=== PATIENT | male | born 1970 | race Caucasian/White ===

== ENCOUNTER 2016-05-26 13:53 | Emergency (ER) | payer SELFPAY ==
[2016-05-26 14:02] VITALS: BP 160/118
[2016-05-26] MEDS ORDERED: Ondansetron 4 MG/2 ML SDV IVPUSH ONE (14:46)
[2016-05-26] MEDS ORDERED: Sodium Chloride 0.9% 10 ML Syringe FLUSH PRN ×3 (14:46→15:35)
[2016-05-26] MEDS ORDERED: Pantoprazole 40 MG Vial IVPUSH ONE (14:46)
[2016-05-26] MEDS ORDERED: Iopamidol 612 MG/ML 150 ML Bottle IVPUSH ONE (14:51)
[2016-05-26] MEDS ORDERED: Diatrizoate Meglumine/Diatrizoate Sodium 37% 120 ML Bottle PO ONE ×2 (14:53→15:35)
--- NOTE | 2016-05-26 14:59 | EDM.PDOC ---
ED HPI GI/ABDOMINAL - General Chief Complaint: Gastrointestinal Problem Stated Complaint: GASTROINTESTINAL ISSUES Time Seen by Provider: 05/26/16 14:35 Source of Information: Reports: Patient History Limitations: Reports: Intoxication - History of Present Illness INITIAL COMMENTS - FREE TEXT/NARRATIVE: Patient is a 46-year-old male who presents to the ED complaining of left flank, left lower quadrant, suprapubic, right lower quadrant abdominal pain that started approximately 2 weeks ago. States discomfort initially started to left flank with concerns of being diverticulitis. States he had some nausea and emesis with onset of discomfort that resolved on its own accord. States as of recent he developed this pain again and has been unable to eat/drink.He has been nauseated with no emesis. He's had regular bowel movements daily with last BM this morning described as hard then soft with no blood present. Pain is currently rated a 6/10. He does note some burning sensation with urination described as minimal with no blood or abnormal discharge present. Patient states he consumed 2 beers today. Does have a history of alcoholism, anxiety, depression. Current medications include ibuprofen only. He denies any abdominal sureHe is most abdominal surgical history. He has no primary care provider. He smokes one pack a day. Smokes marijuana intermittently. Timing/Duration: Reports: Constant Location: other (Left lower, left upper, left flank) Quality: Reports: ache, stabbing, throbbing, radiating (2 left groin) Severity: moderate Improves with: Reports: other (Nothing) Worsens with: Reports: other (Nothing) Context: Denies: sick contact, bad/questionable food, out of country travel, recent surgery, recent trauma, lifting, activity/exercise Associated Symptoms: Reports: back pain, groin pain, loss of appetite, malaise, nausea/vomiting. 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 (see below) (none stated.) - Related Data Allergies/ADRs: Allergies Allergy/AdvReac Type Severity Reaction Status Date / Time amoxicillin [Amoxicillin] Allergy Rash Verified 07/29/15 01:40 Penicillins Allergy Rash Verified 07/29/15 01:40 Past Medical History - Past Health History Medical/Surgical History: Denies Medical/Surgical History Cardiovascular History: Reports: Arrhythmia, Hypertension Gastrointestinal History: Reports: Diverticulosis Psychiatric History: Reports: Addiction Social & Family History - Family History Family Medical History: Noncontributory - Tobacco Use Smoking Status *Q: Current Every Day Smoker Years of Tobacco use: 30 Packs/Tins Daily: 1 Second Hand Smoke Exposure: Yes - Alcohol Use Days Per Week of Alcohol Use: 7 Number of Drinks Per Day: 6 Total Drinks Per Week: 42 - Recreational Drug Use Recreational Drug Use: Yes Drug Use in Last 12 Months: No Recreational Drug Type: Reports: Marijuana/Hashish Recreational Drug Use Frequency: Rarely Recreational Drug Last Use: 1 day ago - Living Situation & Occupation Living situation: Reports: 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 Denies: fever, chills Respiratory: Denies: shortness of breath, cough, sputum Cardiovascular: Denies: Chest pain, Dyspnea on exertion, Lightheadedness GI/Abdominal: Reports: Abdominal pain, Decreased appetite, Nausea. Denies: Constipation, Diarrhea, Vomiting : Reports: discharge, dysuria, flank pain, urinary retention. Denies: frequency, hematuria, urgency Musculoskeletal: Denies: back pain Neurological: Denies: confusion, dizziness, numbness, seizure, tingling, difficulty walking Psychiatric: Reports: Depression. Denies: Agitation, Anxiety ED EXAM, GI/ABD - Physical Exam Exam: See Below Exam Limited By: Intoxication General Appearance: alert, WD/WN, no apparent distress Eyes: bilateral: EOMI Ears: hearing grossly normal Nose: normal inspection Throat/Mouth: Normal inspection, Normal oropharynx, Normal voice, No airway compromise Head: atraumatic, normocephalic Neck: normal inspection, supple, non-tender, full range of motion. No: lymphadenopathy (L), lymphadenopathy (R) Respiratory/Chest: no respiratory distress, no accessory muscle use, chest non- tender, respiratory distress, rhonchi (right lower lung field) Cardiovascular: normal peripheral pulses, regular rate, rhythm GI/Abdominal: normal bowel sounds, soft, no organomegaly, no distention, tenderness (left lower quadrant, suprapubic, and right lower quadrant) (Male) Exam: Deferred Rectal (Males) Exam: Deferred Back Exam: normal inspection, full range of motion. No: CVA tenderness (L), CVA tenderness (R) Extremities: normal inspection, normal range of motion, non-tender Neurological: alert, oriented, CN II-XII intact, normal cognition, no motor/ sensory deficits Psychiatric: normal affect, normal mood Skin Exam: Warm, Dry, Intact, Normal color, No rash Course - Vital Signs Last Recorded V/S: Last Vital Signs Temp 97.5 F 05/26/16 13:58 Pulse 94 05/26/16 13:58 Resp 16 05/26/16 13:58 BP 160/118 H 05/26/16 13:58 Pulse Ox 96 05/26/16 13:58 - Orders/Labs/Meds Orders: Active Orders 24 hr Category Date Time Status Peripheral IV Care [RC] . DIRECTED Care 05/26/16 14:46 Active Sodium Chloride 0.9% [Normal Saline] 1,000 ml Med 05/26/16 15:00 Active IV ASDIRECTED Sodium Chloride 0.9% [Saline Flush] Med 05/26/16 14:46 Active 10 ml FLUSH ASDIRECTED PRN Sodium Chloride 0.9% [Saline Flush] Med 05/26/16 14:51 Active 10 ml FLUSH ONETIME PRN Sodium Chloride 0.9% [Saline Flush] Med 05/26/16 15:35 Active 10 ml FLUSH ONETIME PRN Peripheral IV Insertion Adult [OM.PC] Stat Oth 05/26/16 14:45 Ordered Medication Orders Sodium Chloride (Normal Saline) 1,000 mls @ 999 mls/hr IV ASDIRECTED MELODY Last Admin: 05/26/16 15:11 Dose: 999 mls/hr Sodium Chloride (Saline Flush) 10 ml FLUSH ASDIRECTED PRN PRN Reason: Keep Vein Open Last Admin: 05/26/16 15:18 Dose: 10 ml Sodium Chloride (Saline Flush) 10 ml FLUSH ONETIME PRN PRN Reason: IV FLUSH Last Admin: 05/26/16 15:18 Dose: 10 ml Sodium Chloride (Saline Flush) 10 ml FLUSH ONETIME PRN PRN Reason: IV FLUSH Last Admin: 05/26/16 15:56 Dose: 10 ml Labs: Laboratory Tests 05/26/16 05/26/16 05/26/16 Range/Units 14:06 14:06 14:06 WBC 10.95 H (4.23-9.07) K/mm3 RBC 5.37 (4.63-6.08) M/mm3 Hgb 16.0 (13.7-17.5) gm/L Hct 47.5 (40.1-51.0) % MCV 88.5 (79.0-92.2) fl MCH 29.8 (25.7-32.2) pg MCHC 33.7 (32.2-35.5) g/dl RDW Std Deviation 43.2 (35.1-43.9) fL Plt Count 339 H (163-337) K/mm3 MPV 9.1 L (9.4-12.3) fl Neut % (Auto) 53.1 (34.0-67.9) % Lymph % (Auto) 33.8 (21.8-53.1) % [place] % (Auto) 9.8 (5.3-12.2) % Eos % (Auto) 2.4 (0.8-7.0) Baso % (Auto) 0.6 (0.1-1.2) % Neut # 5.82 H (1.78-5.38) K/mm3 Lymph # 3.70 H (1.32-3.57) K/mm3 [place] # 1.07 H (0.30-0.82) K/mm3 Eos # 0.26 (0.04-0.54) K/mm3 Baso # 0.07 (0.01-0.08) K/mm3 PT 10.5 (8.0-13.0) SECONDS INR 0.97 APTT (22-36) SECONDS Sodium 140 (136-145) mEq/L Potassium 3.4 L (3.5-5.1) mEq/L Chloride 103 (98-107) mEq/L Carbon Dioxide 23 (21-32) mEq/L Anion Gap 17.4 H (5-15) BUN 11 (7-18) mg/dL Creatinine 0.7 (0.7-1.3) mg/dL Est Cr Clr Drug Dosing 132.48 mL/min Estimated GFR (MDRD) > 60 (>60) mL/min BUN/Creatinine Ratio 15.7 (14-18) Glucose 111 H (74-106) mg/dL Calcium 8.8 (8.5-10.1) mg/dL Total Bilirubin 0.6 (0.2-1.0) mg/dL AST 18 (15-37) U/L ALT 21 (16-63) U/L Alkaline Phosphatase 92 (46-116) U/L C-Reactive Protein 0.2 (<1.0) mg/dL Total Protein 7.4 (6.4-8.2) g/dl Albumin 4.2 (3.4-5.0) g/dl Globulin 3.2 gm/dL Albumin/Globulin Ratio 1.3 (1-2) Lipase 158 (73-393) U/L Urine Color (Yellow) Urine Appearance (Clear) Urine pH (5.0-8.0) Ur Specific Mutual (1.005-1.030) Urine Protein (Negative) Urine Glucose (UA) (Negative) Urine Ketones (Negative) Urine Occult Blood (Negative) Urine Nitrite (Negative) Urine Bilirubin (Negative) Urine Urobilinogen (0.2-1.0) Ur Leukocyte Esterase (Negative) Urine RBC (0-5) /hpf Urine WBC (0-5) /hpf Ur Squamous Epith Cells (0-5) /hpf Urine Bacteria (FEW) /hpf Urine Mucus (FEW) /hpf Urine Opiates Screen (NEGATIVE) Ur Buprenorphine Scrn (NEGATIVE) Ur Oxycodone Screen (NEGATIVE) Urine Methadone Screen (NEGATIVE) Ur Propoxyphene Screen (NEGATIVE) Ur Barbiturates Screen (NEGATIVE) Ur Tricyclics Screen (NEGATIVE) Ur Phencyclidine Scrn (NEGATIVE) Ur Amphetamine Screen (NEGATIVE) U Methamphetamines Scrn (NEGATIVE) U Benzodiazepines Scrn (NEGATIVE) U Cocaine Metab Screen (NEGATIVE) U Marijuana (THC) Screen (NEGATIVE) Ethyl Alcohol 0.22 (0.00) gm% 05/26/16 05/26/16 05/26/16 Range/Units 14:06 14:15 14:15 WBC (4.23-9.07) K/mm3 RBC (4.63-6.08) M/mm3 Hgb (13.7-17.5) gm/L Hct (40.1-51.0) % MCV (79.0-92.2) fl MCH (25.7-32.2) pg MCHC (32.2-35.5) g/dl RDW Std Deviation (35.1-43.9) fL Plt Count (163-337) K/mm3 MPV (9.4-12.3) fl Neut % (Auto) (34.0-67.9) % Lymph % (Auto) (21.8-53.1) % [place] % (Auto) (5.3-12.2) % Eos % (Auto) (0.8-7.0) Baso % (Auto) (0.1-1.2) % Neut # (1.78-5.38) K/mm3 Lymph # (1.32-3.57) K/mm3 [place] # (0.30-0.82) K/mm3 Eos # (0.04-0.54) K/mm3 Baso # (0.01-0.08) K/mm3 PT (8.0-13.0) SECONDS INR APTT 24 (22-36) SECONDS Sodium (136-145) mEq/L Potassium (3.5-5.1) mEq/L Chloride (98-107) mEq/L Carbon Dioxide (21-32) mEq/L Anion Gap (5-15) BUN (7-18) mg/dL Creatinine (0.7-1.3) mg/dL Est Cr Clr Drug Dosing mL/min Estimated GFR (MDRD) (>60) mL/min BUN/Creatinine Ratio (14-18) Glucose (74-106) mg/dL Calcium (8.5-10.1) mg/dL Total Bilirubin (0.2-1.0) mg/dL AST (15-37) U/L ALT (16-63) U/L Alkaline Phosphatase (46-116) U/L C-Reactive Protein (<1.0) mg/dL Total Protein (6.4-8.2) g/dl Albumin (3.4-5.0) g/dl Globulin gm/dL Albumin/Globulin Ratio (1-2) Lipase (73-393) U/L Urine Color Light yellow (Yellow) Urine Appearance Clear (Clear) Urine pH 6.5 (5.0-8.0) Ur Specific Mutual 1.010 (1.005-1.030) Urine Protein Negative (Negative) Urine Glucose (UA) Negative (Negative) Urine Ketones Negative (Negative) Urine Occult Blood Negative (Negative) Urine Nitrite Negative (Negative) Urine Bilirubin Negative (Negative) Urine Urobilinogen 0.2 (0.2-1.0) Ur Leukocyte Esterase Negative (Negative) Urine RBC Not seen (0-5) /hpf Urine WBC 0-5 (0-5) /hpf Ur Squamous Epith Cells 0-5 (0-5) /hpf Urine Bacteria Not seen (FEW) /hpf Urine Mucus Not seen (FEW) /hpf Urine Opiates Screen Negative (NEGATIVE) Ur Buprenorphine Scrn Negative (NEGATIVE) Ur Oxycodone Screen Negative (NEGATIVE) Urine Methadone Screen Negative (NEGATIVE) Ur Propoxyphene Screen Negative (NEGATIVE) Ur Barbiturates Screen Negative (NEGATIVE) Ur Tricyclics Screen Negative (NEGATIVE) Ur Phencyclidine Scrn Negative (NEGATIVE) Ur Amphetamine Screen Negative (NEGATIVE) U Methamphetamines Scrn Negative (NEGATIVE) U Benzodiazepines Scrn Negative (NEGATIVE) U Cocaine Metab Screen Negative (NEGATIVE) U Marijuana (THC) Screen Presumptive positive H (NEGATIVE) Ethyl Alcohol (0.00) gm% Meds: Medications Generic Name Dose Route Start Last Admin Trade Name Freq PRN Reason Stop Dose Admin Sodium Chloride 1,000 mls @ 999 mls/hr 05/26/16 15:00 05/26/16 15:11 Normal Saline IV 999 mls/hr ASDIRECTED MELODY Administration Sodium Chloride 10 ml 05/26/16 14:46 05/26/16 15:18 Saline Flush FLUSH 10 ml ASDIRECTED PRN Administration Keep Vein Open Sodium Chloride 10 ml 05/26/16 14:51 05/26/16 15:18 Saline Flush FLUSH 10 ml ONETIME PRN Administration IV FLUSH Sodium Chloride 10 ml 05/26/16 15:35 05/26/16 15:56 Saline Flush FLUSH 10 ml ONETIME PRN Administration IV FLUSH Discontinued Medications Generic Name Dose Route Start Last Admin Trade Name Freq PRN Reason Stop Dose Admin Diatrizoate Meglum/Diatrizoate Sod 120 ml 05/26/16 14:53 05/26/16 15:55 Gastrografin 37% PO 05/26/16 14:54 90 ml ONETIME ONE Administration Diatrizoate Meglum/Diatrizoate Sod 90 ml 05/26/16 15:35 Gastrografin 37% PO 05/26/16 15:36 ONETIME ONE Hydromorphone HCl 0.5 mg 05/26/16 14:46 05/26/16 15:15 Dilaudid IM 05/26/16 14:47 Not Given ONETIME ONE Hydromorphone HCl 0.5 mg 05/26/16 15:16 05/26/16 15:16 Dilaudid IVPUSH 05/26/16 15:17 0.5 mg ONETIME ONE Administration Iopamidol 150 ml 05/26/16 14:51 Isovue-300 (61%) IVPUSH 05/26/16 14:52 ONETIME ONE Iopamidol 100 ml 05/26/16 15:35 05/26/16 15:56 Isovue-300 (61%) IVPUSH 05/26/16 15:36 100 ml ONETIME ONE Administration Ondansetron HCl 4 mg 05/26/16 14:46 05/26/16 15:12 Zofran IVPUSH 05/26/16 14:47 4 mg ONETIME ONE Administration Pantoprazole Sodium 40 mg 05/26/16 14:46 05/26/16 15:11 Protonix Iv IVPUSH 05/26/16 14:47 40 mg ONETIME ONE Administration - Re-Assessments/Exams Free Text/Narrative Re-Assessment/Exam: Will order peripheral IV with normal saline 999 mls per hour, Zofran 4 mg IVP, Protonix 40 mg IVP, Dilaudid 0.5 mg IVP. Initial labs and studies include CBC, chem 14, CRP, lipase, PT/INR, PTT, urine drug tox, UA with micro, chest x-ray one view, CT abdominal and pelvis with IV and oral contrast. 05/26/16 14:59 05/26/16 15:58 WBC 10.95, HGB 16.0, Platelets 339, INR 0.97, PTT 24, NA 140, K+ 3.4, AG 17.4, Cr 0.7, CRP, 0.2, ETOH 0.22. CXR: No acute intrathoracic process is seen. 05/26/16 16:44 CT Abdomen impression: Mildy distended bladder with urine. Minimal low density area next to the gall bladder felt compatible with incidental 3mm cyst. Nothing acute is seen with other incidental findings as described above. 05/26/16 17:50 Received results of UA. Shared results of labs and studies with patient. Unclear etiology of pain to the left flank. Once these results were shared patient became very agitated that we do not have a clear etiology for his discomfort. Patient got up out of bed and threw his sheet on me. Grabbed his coat and proceeded to walk down the ER hallway wishing for directions out of the ER. Patient was asked to stop so we could remove his IV. Patient pulledthe IV out himself and threw the catheter on the floor. Patient proceeded to drip blood down the hallway. We asked the patient again to stop. At that point he wrapped his shirt around his hand. Patient left the E.D. and went to his vehicle in the parking lot. stayed back and gathered his things. States he was sober for almost one year and when his insurance ran out he was unable to continue taking his depression/anxiety medications. He resorted back to drinking alcohol. I told her to return as needed if patient develops any new or worsening symptoms. Departure - Departure Time of Disposition: 18:02 Disposition: Eloped 07 Clinical Impression: Flank pain, Alcohol abuse, Abdominal pain, Recreational drug use, Hypokalemia Referrals: PCP,None [Primary Care Provider] - Forms: ED Department Discharge - My Orders Last 24 Hours: My Active Orders 05/26/16 14:45 Peripheral IV Insertion Adult [OM.PC] Stat 05/26/16 14:46 Peripheral IV Care [RC] . DIRECTED Sodium Chloride 0.9% [Saline Flush] 10 ml FLUSH ASDIRECTED PRN 05/26/16 14:51 Sodium Chloride 0.9% [Saline Flush] 10 ml FLUSH ONETIME PRN 05/26/16 15:00 Sodium Chloride 0.9% [Normal Saline] 1,000 ml IV ASDIRECTED 05/26/16 15:35 Sodium Chloride 0.9% [Saline Flush] 10 ml FLUSH ONETIME PRN - Assessment/Plan Last 24 Hours: My Active Orders 05/26/16 14:45 Peripheral IV Insertion Adult [OM.PC] Stat 05/26/16 14:46 Peripheral IV Care [RC] . DIRECTED Sodium Chloride 0.9% [Saline Flush] 10 ml FLUSH ASDIRECTED PRN 05/26/16 14:51 Sodium Chloride 0.9% [Saline Flush] 10 ml FLUSH ONETIME PRN 05/26/16 15:00 Sodium Chloride 0.9% [Normal Saline] 1,000 ml IV ASDIRECTED 05/26/16 15:35 Sodium Chloride 0.9% [Saline Flush] 10 ml FLUSH ONETIME PRN
[2016-05-26] MEDS ORDERED: Sodium Chloride 0.9% 1,000 ML IV SCH (15:00)
[2016-05-26] MEDS: HYDROmorphone 0.5 MG/0.5 ML Syringe IM ONE ×2 (15:13→15:15)
[2016-05-26] MEDS ORDERED: HYDROmorphone 0.5 MG/0.5 ML Syringe IVPUSH ONE (15:16)
[2016-05-26] MEDS ORDERED: Iopamidol 612 MG/ML 100 ML Bottle IVPUSH ONE (15:35)
--- NOTE | 2016-05-26 15:44 | CR ---
Chest: Portable view of the chest was obtained. Comparison: Previous chest x-ray of 12/28/13. Heart size and mediastinum are normal. Lungs are clear. Bony structures are grossly intact. Minimal scoliosis is noted. Impression: 1. No acute intrathoracic process is seen. Diagnostic code #2
--- NOTE | 2016-05-26 16:28 | CT ---
CT abdomen and pelvis Technique: Multiple axial sections were obtained from above the dome of the diaphragm inferiorly through the pubic symphysis. Intravenous and oral contrast was utilized. Delayed images were also obtained through the bladder. Comparison: No previous CT abdomen or pelvis. Findings: Visualized lung bases shows nothing acute. Very small 3 mm low-density area noted next to the gallbladder most likely representing a minimal cyst. No additional abnormality is identified within the liver. Spleen appears normal. Gallbladder shows no calcified gallstones. Adrenal glands show no nodule. Kidneys show symmetric contrast enhancement without hydronephrosis or mass. Delayed images shows contrast within the distal ureters and within the bladder. Multiple small retroperitoneal lymph nodes are seen which are felt to be incidental. Atherosclerotic plaque is noted within the abdominal aorta with mild atherosclerotic calcification. No aneurysm is seen. No mesenteric abnormalities are seen. Appendix is seen which appears normal. No pelvic mass or adenopathy is seen. Bladder is slightly distended from urine. Minimal diverticulosis is seen within the descending and sigmoid colon. Bone window settings were reviewed which shows minimal scattered degenerative endplate spurring. No free fluid or inflammatory change is identified. Impression: 1. Mildly distended bladder with urine. 2. Minimal low density area next to the gallbladder felt compatible with incidental 3 mm cyst. 3. Nothing acute is seen with other incidental findings as described above. Diagnostic code #2
== END 2016-05-26 18:00 | disposition left against medical advice (07) ==
LOC: JD.ED 13:53
DX: R10.30 Lower abdominal pain, unspecified (principal); F10.10 Alcohol abuse, uncomplicated; E87.6 Hypokalemia; F12.90 Cannabis use, unspecified, uncomplicated; F17.200 Nicotine dependence, unspecified, uncomplicated; I10 Essential (primary) hypertension; Z88.0 Allergy status to penicillin; Z88.1 Allergy status to other antibiotic agents
CPT/HCPCS: 36415; 71010; 74177; 80053; 80306; 81001; 83690; 85025; 85610; 85730; 86140; 96361; 96374; 96375; 99284; C9113; G0480; J1170; J2405; J7040; J7050; Q9963; Q9967

== ENCOUNTER 2017-04-27 21:56 | Emergency (ER) | payer SELFPAY ==
[2017-04-27] MEDS ORDERED: LORazepam 2 MG/ML MDV IVPUSH ONE (22:07)
[2017-04-27] MEDS ORDERED: Metoclopramide 10 MG/2 ML SDV IVPUSH ONE (22:07)
[2017-04-27] MEDS ORDERED: Aspirin 81 MG Tab.Chew PO ONE (22:07)
--- NOTE | 2017-04-27 22:10 | EDM.PDOC ---
ED HPI GENERAL MEDICAL PROBLEM - General Chief Complaint: Chest Pain Stated Complaint: G[facility] AMB Time Seen by Provider: 04/27/17 22:05 Source of Information: Reports: Patient History Limitations: Reports: No Limitations - History of Present Illness INITIAL COMMENTS - FREE TEXT/NARRATIVE: 47-year-old male brought to the ED per ambulance. Please were in attendance unseen. Patient apparently got into a conflict or verbal dispute with his ericka and threatened suicide during this event. Patient has been drinking alcohol and apparently drinks alcohol on a daily basis. He reports that he's had vodka tonight. Ice nausea vomiting. He does appear to be mildly intoxicated. He is not tearful he is cooperative. History suggests that he suffers from chronic depression and has not been treated for this in the past. He smokes cigarettes usually a pack per day. He complained of chest pain and therefore the paramedics were summoned to scene. He was given 324 mg aspirin en route to hospital. He has no known heart disease. He rarely sees a physician. Currently on no medications. Apparently he has a history of hypertension but is on not taking any medications for this. Onset: Today (Verbal dispute with his ericka. This precipitates him suggesting that wraps he would be better off .), Other ( reports that he suffers from chronic depression and chronic substance abuse. Uses alcohol 131 with daily basis.) Duration: Chronic, Other (Has threatened suicide in the past but seemed to be more serious tonight.) Location: Reports: Chest (Sharp stabbing chest pain. States it's been off of their off and on for 2 years just worse after argument with ericka.) Quality: Reports: Sharp, Stabbing Severity: Moderate Improves with: Reports: None Worsens with: Reports: None Context: Reports: Other (Always seems to have some anterior chest pain occasional radiating up into his neck. He's aware of mild reflux symptoms periodically.). Denies: Activity, Exercise, Lifting, Sick Contact Associated Symptoms: Reports: Cough (Smoker's cough usually minimally productive of sputum.), Loss of Appetite, Malaise, Shortness of Breath (On exertion). Denies: Diaphoresis, Fever/Chills, Headaches, Nausea/Vomiting, Syncope Treatments [employer]: Reports: Aspirin Chest Pain Score (Numeric/FACES): 6 - Related Data Allergies Allergy/AdvReac Type Severity Reaction Status Date / Time amoxicillin [Amoxicillin] Allergy Rash Verified 04/27/17 21:58 Penicillins Allergy Rash Verified 04/27/17 21:58 Home Meds: Home Meds Citalopram [Citalopram HBr] 20 mg PO DAILY #30 tab 04/28/17 [Rx] Past Medical History - Past Health History Medical/Surgical History: Denies Medical/Surgical History Cardiovascular History: Reports: Arrhythmia, Hypertension Gastrointestinal History: Reports: Diverticulosis Psychiatric History: Reports: Addiction Social & Family History - Family History Family Medical History: Noncontributory - Tobacco Use Smoking Status *Q: Current Every Day Smoker Years of Tobacco use: 30 Packs/Tins Daily: 1 Second Hand Smoke Exposure: Yes - Alcohol Use Days Per Week of Alcohol Use: 7 Number of Drinks Per Day: 6 Total Drinks Per Week: 42 - Recreational Drug Use Recreational Drug Use: Yes Drug Use in Last 12 Months: No Recreational Drug Type: Reports: Marijuana/Hashish Recreational Drug Use Frequency: Rarely Recreational Drug Last Use: 1 day ago - Living Situation & Occupation Living situation: Reports: Occupation: Employed ED ROS GENERAL - Review of Systems Review Of Systems: See Below Constitutional: Reports: Malaise, Weakness, Fatigue, Decreased Appetite, Weight Loss. Denies: Fever, Chills HEENT: Reports: No Symptoms Respiratory: Reports: Shortness of Breath, Pleuritic Chest Pain, Cough, Sputum ( Occasional cough related to smoking). Denies: Wheezing, Hemoptysis, Other Cardiovascular: Reports: Blood Pressure Problem, Dyspnea on Exertion. Denies: Claudication, Edema, Lightheadedness, Orthopnea (Fairly has a history of chronic hypertension untreated.) Endocrine: Reports: Fatigue GI/Abdominal: Reports: Decreased Appetite, Other (History of recurrent diverticulitis.). Denies: Diarrhea, Difficulty Swallowing, Distension, Flatus, Hematemesis, Hematochezia : Reports: Frequency Musculoskeletal: Reports: Back Pain Skin: Reports: No Symptoms Neurological: Reports: Headache, Difficulty Walking (He reports sometimes with walking he develops weakness in his right extremity. Difficult to rule out claudication but he states he has to stop walking for a period time and they can walk again.), Weakness, Gait Disturbance (Mildly ataxic at present due to alcohol use.). Denies: Confusion, Dizziness, Numbness, Seizure, Syncope, Tingling, Trouble Speaking, Change in Speech Psychiatric: Reports: Anxiety, Depression, Suicidal Ideation (Reports chronic depression. Landed guilt surrounding his chronic alcohol use. Intermittently but he denies suicidal ideation at this time. States he threatened suicide out of anger and frustration during verbal dispute with his .) Hematologic/Lymphatic: Reports: No Symptoms Immunologic: Reports: No Symptoms ED EXAM, GENERAL - Physical Exam Exam: See Below Exam Limited By: Intoxication General Appearance: Alert, WD/WN (Mildly intoxicated.), Mild Distress Eye Exam: Bilateral Eye: Normal Inspection, Nystagmus (Mild on lateral gaze bilaterally.) Throat/Mouth: Other (Mildly erythematous from cigarette smoking) Head: Atraumatic, Normocephalic, Other Neck: Normal Inspection, Supple, Non-Tender, Full Range of Motion. No: Carotid Bruit, Lymphadenopathy (L), Lymphadenopathy (R), Thyromegaly Respiratory/Chest: No Respiratory Distress, Lungs Clear, Normal Breath Sounds, Chest Non-Tender Cardiovascular: Normal Peripheral Pulses, No Edema, No Murmur, No Rub, Tachycardia (Resting tachycardia of 1 15/m.) Peripheral Pulses: 2+: Posterior Tibial (L), Posterior Tibial (R), Dorsalis Pedis (L), Dorsalis Pedis (R) GI/Abdominal: Normal Bowel Sounds, Soft, Non-Tender, No Organomegaly, Other (Male) Exam: No Hernia Back Exam: Normal Inspection, Full Range of Motion. No: CVA Tenderness (L), CVA Tenderness (R) Extremities: Normal Inspection, Normal Range of Motion, Non-Tender, No Pedal Edema Neurological: Alert, Oriented, CN II-XII Intact, Normal Cognition, Normal Gait Psychiatric: Normal Affect, Normal Mood Skin Exam: Warm, Dry, Intact, Normal Color, Other (He points out an area where apparently he had a tick deeply embedded in his right lower abdominal wall just above the iliac crest and still has a black flory the center of this. He states it did swell and have a foci pattern lesion when it happened urine 18 months ago. He wonders if he contracted Lyme disease at that time. States the tick bite occurred while he was in the [facility] in [place]. He never developed any rashes after this.he has had a lot of headaches since then and a lot of arthralgia particularly involving his knees. ) EKG INTERPRETATION EKG Date: 04/27/17 Time: 21:58 Rhythm: Other Rate (Beats/Min): 115 [place]: Normal P-Wave: Enlarged (He has biatrial enlargement on ECG.) QRS: Other (Has near Q-wave in V1 and V2. Cannot rule out old anteroseptal myocardial infarction.) ST-T: Normal QT: Normal EKG Interpretation Comments: Abnormal ECG Course - Vital Signs Last Recorded V/S: Last Vital Signs Temp 36.1 C 04/27/17 21:58 Pulse 112 H 04/27/17 21:58 Resp 18 04/27/17 21:58 BP 122/92 H 04/28/17 04:44 Pulse Ox 96 04/27/17 21:58 - Orders/Labs/Meds Orders: Active Orders 24 hr Category Date Time Status EKG Documentation Completion [RC] STAT Care 04/27/17 22:05 Active Chest 1V Frontal [CR] Stat Exams 04/27/17 22:05 Taken Dextrose 5%-0.9% NaCl [Dextrose 5%-Normal Saline] 1,000 Med 04/27/17 23:30 Active ml IV ASDIRECTED Dextrose 5%-0.9% NaCl [Dextrose 5%-Normal Saline] 1,000 Med 04/28/17 00:30 Active ml IV ASDIRECTED Medication Orders Dextrose/Sodium Chloride (Dextrose 5%-Normal Saline) 1,000 mls @ 999 mls/hr IV ASDIRECTED MELODY Last Admin: 04/27/17 23:31 Dose: 999 mls/hr Dextrose/Sodium Chloride (Dextrose 5%-Normal Saline) 1,000 mls @ 150 mls/hr IV ASDIRECTED MELODY Last Admin: 04/28/17 00:32 Dose: 150 mls/hr Labs: Laboratory Tests 04/27/17 04/27/17 04/27/17 Range/Units 22:05 22:05 22:10 WBC 10.77 H (4.23-9.07) K/mm3 RBC 5.95 (4.63-6.08) M/mm3 Hgb 17.7 H (13.7-17.5) gm/L Hct 52.4 H (40.1-51.0) % MCV 88.1 (79.0-92.2) fl MCH 29.7 (25.7-32.2) pg MCHC 33.8 (32.2-35.5) g/dl RDW Std Deviation 44.0 H (35.1-43.9) fL Plt Count 393 H (163-337) K/mm3 MPV 9.0 L (9.4-12.3) fl Neutrophils % (Manual) 55 (40-60) % Band Neutrophils % 0 (0-10) % Lymphocytes % (Manual) 33 (20-40) % Atypical Lymphs % 2 % Monocytes % (Manual) 7 (2-10) % Eosinophils % (Manual) 1 (0.8-7.0) % Basophils % (Manual) 1 (0.2-1.2) Myelocytes % 1 Platelet Estimate Adequate Plt Morphology Comment Normal RBC Morph Comment Normal Sodium 143 (136-145) mEq/L Potassium 4.2 (3.5-5.1) mEq/L Chloride 105 (98-107) mEq/L Carbon Dioxide 22 (21-32) mEq/L Anion Gap 20.2 H (5-15) BUN 11 (7-18) mg/dL Creatinine 0.7 (0.7-1.3) mg/dL Est Cr Clr Drug Dosing TNP Estimated GFR (MDRD) > 60 (>60) mL/min BUN/Creatinine Ratio 15.7 (14-18) Glucose 108 H (74-106) mg/dL Calcium 9.2 (8.5-10.1) mg/dL Magnesium 2.1 (1.8-2.4) mg/dl Total Bilirubin 0.3 (0.2-1.0) mg/dL AST 21 (15-37) U/L ALT 28 (16-63) U/L Alkaline Phosphatase 90 (46-116) U/L CK-MB (CK-2) 1.0 (0-3.6) ng/ml Troponin I < 0.017 (0.00-0.056) ng/mL Total Protein 8.3 H (6.4-8.2) g/dl Albumin 4.4 (3.4-5.0) g/dl Globulin 3.9 gm/dL Albumin/Globulin Ratio 1.1 (1-2) Amylase 48 (25-115) U/L TSH 3rd Generation (0.358-3.74) uIU/mL Urine Opiates Screen Negative (NEGATIVE) Ur Buprenorphine Scrn Negative (NEGATIVE) Ur Oxycodone Screen Negative (NEGATIVE) Urine Methadone Screen Negative (NEGATIVE) Ur Propoxyphene Screen Negative (NEGATIVE) Ur Barbiturates Screen Negative (NEGATIVE) Ur Tricyclics Screen Negative (NEGATIVE) Ur Phencyclidine Scrn Negative (NEGATIVE) Ur Amphetamine Screen Negative (NEGATIVE) U Methamphetamines Scrn Negative (NEGATIVE) U Benzodiazepines Scrn Negative (NEGATIVE) U Cocaine Metab Screen Negative (NEGATIVE) U Marijuana (THC) Screen Presumptive positive H (NEGATIVE) Ethyl Alcohol 0.18 (0.00) gm% 04/27/17 Range/Units 22:23 WBC (4.23-9.07) K/mm3 RBC (4.63-6.08) M/mm3 Hgb (13.7-17.5) gm/L Hct (40.1-51.0) % MCV (79.0-92.2) fl MCH (25.7-32.2) pg MCHC (32.2-35.5) g/dl RDW Std Deviation (35.1-43.9) fL Plt Count (163-337) K/mm3 MPV (9.4-12.3) fl Neutrophils % (Manual) (40-60) % Band Neutrophils % (0-10) % Lymphocytes % (Manual) (20-40) % Atypical Lymphs % % Monocytes % (Manual) (2-10) % Eosinophils % (Manual) (0.8-7.0) % Basophils % (Manual) (0.2-1.2) Myelocytes % Platelet Estimate Plt Morphology Comment RBC Morph Comment Sodium (136-145) mEq/L Potassium (3.5-5.1) mEq/L Chloride (98-107) mEq/L Carbon Dioxide (21-32) mEq/L Anion Gap (5-15) BUN (7-18) mg/dL Creatinine (0.7-1.3) mg/dL Est Cr Clr Drug Dosing Estimated GFR (MDRD) (>60) mL/min BUN/Creatinine Ratio (14-18) Glucose (74-106) mg/dL Calcium (8.5-10.1) mg/dL Magnesium (1.8-2.4) mg/dl Total Bilirubin (0.2-1.0) mg/dL AST (15-37) U/L ALT (16-63) U/L Alkaline Phosphatase (46-116) U/L CK-MB (CK-2) (0-3.6) ng/ml Troponin I (0.00-0.056) ng/mL Total Protein (6.4-8.2) g/dl Albumin (3.4-5.0) g/dl Globulin gm/dL Albumin/Globulin Ratio (1-2) Amylase (25-115) U/L TSH 3rd Generation 5.585 H (0.358-3.74) uIU/mL Urine Opiates Screen (NEGATIVE) Ur Buprenorphine Scrn (NEGATIVE) Ur Oxycodone Screen (NEGATIVE) Urine Methadone Screen (NEGATIVE) Ur Propoxyphene Screen (NEGATIVE) Ur Barbiturates Screen (NEGATIVE) Ur Tricyclics Screen (NEGATIVE) Ur Phencyclidine Scrn (NEGATIVE) Ur Amphetamine Screen (NEGATIVE) U Methamphetamines Scrn (NEGATIVE) U Benzodiazepines Scrn (NEGATIVE) U Cocaine Metab Screen (NEGATIVE) U Marijuana (THC) Screen (NEGATIVE) Ethyl Alcohol (0.00) gm% Meds: Medications Generic Name Dose Route Start Last Admin Trade Name Freq PRN Reason Stop Dose Admin Dextrose/Sodium Chloride 1,000 mls @ 999 mls/hr 04/27/17 23:30 04/27/17 23:31 Dextrose 5%-Normal Saline IV 999 mls/hr ASDIRECTED MELODY Administration Dextrose/Sodium Chloride 1,000 mls @ 150 mls/hr 04/28/17 00:30 04/28/17 00:32 Dextrose 5%-Normal Saline IV 150 mls/hr ASDIRECTED MELODY Administration Discontinued Medications Generic Name Dose Route Start Last Admin Trade Name Freq PRN Reason Stop Dose Admin Al Hydroxide/Mg Hydroxide 30 ml 04/27/17 22:21 04/27/17 22:39 Mag-Al Plus PO 04/27/17 22:22 30 ml ONETIME ONE Administration Aspirin 324 mg 04/27/17 22:07 04/27/17 22:17 Aspirin PO 04/27/17 22:08 Not Given ONETIME ONE Lorazepam 1 mg 04/27/17 22:07 04/27/17 22:18 Ativan IVPUSH 04/27/17 22:08 1 mg ONETIME ONE Administration Metoclopramide HCl 7.5 mg 04/27/17 22:07 04/27/17 22:18 Reglan IVPUSH 04/27/17 22:08 7.5 mg ONETIME ONE Administration - Radiology Interpretation Free Text/Narrative:: 47-year-old male brought to the ED by ambulance after he got into a verbal dispute with his ericka. He threatens suicide during the argument out of a sense of frustration. Police were called and the eminence was summoned. He complained of chest pain development on scene. States he had chest pain off and on for last 2 years but worse after the argument ericka. Is a smoker. Has a family history of heart disease. He himself doesn't think that he's has any heart problems. He does not see a doctor. He does drink alcohol daily usually vodka. He has been drinking vodka tonight. Denies vomiting or any hematemesis. reports that he history of chronic major depression which he has never sought treatment for. At this time he indicates that he is not truly suicidal but I did threats out of frustration. Plan routine labs to be done. The ECG shows sinus rhythm at 115/m without any sign of ischemia. One view chest x-ray routine labs to be done. Will be given 1 mg of Ativan to relieve some of his anxiety which I believe is a strong component to his chest pain. Also may well have GI symptoms with esophagitis from chronic alcohol use. Also will be given Reglan 7.5 mg IV. - Re-Assessments/Exams Free Text/Narrative Re-Assessment/Exam: 04/27/17 23:05 chest x-ray were done portably reveals hyperinflated lung castaneda bilaterally. Prominent pulmonary arteries bilaterally. Emphysematous changes evident. Cardiac silhouette is normal. 04/27/17 23:18 Labs reveal a white count of 10.77 with 55% neutrophils and no bands. Hemoglobin is elevated at 17.7 with hematocrit of 52.4 suggesting modest hemoconcentration. Platelet count mildly elevated 393,000. Sodium is 143 with a potassium of 4.2. Chloride 105 with a bicarbonate of 22. Anion gap is 20.2. BUN is 11 and creatinine is 0.7. GFR is greater than 60. Glucose is 108. Magnesium normal at 2.1. Liver function normal. Cardiac markers normal. Total protein is elevated 8.3 again suggesting hemoconcentration. TSH is mildly elevated at 5.585 suggesting subclinical hypothyroidism. Urinalysis for drug screen is presumptive positive for marijuana. Current blood alcohol is 0.18 g percent. 04/27/17 23:31 Discussed findings with the patient and he is willing to stay in the ED overnight to get a couple of liters of IV fluids into him. He states he feels much better after the Ativan and Reglan.feels he will be able to sleep. 04/28/17 00:26 has completed the first liter of IV fluids. Will run D5 normal saline at 150 mils per hour for the remainder the night. 04/28/17 05:16 has been able to sleep most of the night. Has been up to the bathroom twice to void. BP is 122/92. 04/28/17 06:00 patient is alert up and walking. He states he is ready to go home and neck she called his for a ride. Discussed with him options about treating depression which sounds like he is suffering from chronically. Is intermittent suicidal ideation and has for many years. He has been tried on a couple of antidepressants in the past but he states he probably took them for 2 weeks or more and felt that they cause side effects making him fuzzy in the head and he discontinued them. He is therefore never stuck with any antidepressant for a period of time long enough to do any good. He recognized that that chronic alcohol use and substance abuse is part of the problem. He is willing to take medication at this time and I will therefore start him on citalopram 20 mg daily. Discussed options about follow-up with [facility] if he wishes treatment for alcohol use disorder. He will follow-up with his personal care physician in about 3-4 weeks time to discuss how he is doing with citalopram. Departure - Departure Time of Disposition: 06:02 Disposition: Home, Self-Care 01 Condition: Fair Clinical Impression: Major depression, chronic, Non-cardiac chest pain Acute alcohol intoxication Qualifiers: Complication of substance-induced condition: uncomplicated Qualified Code(s): F10.929 - Alcohol use, unspecified with intoxication, unspecified Prescriptions: Citalopram [Citalopram HBr] 20 mg PO DAILY #30 tab Referrals: PCP,None [Primary Care Provider] - Forms: ED Department Discharge Additional Instructions: Evaluation in the emergency room overnight due to combination of problems that developed after a verbal dispute with your at your home. Alcohol was a factor. Development of chest pain associated with the verbal dispute precipitated ambulance bringing her to the ED. Police became involved when it was reported that you are suicidal and threatening to potentially injure/harm yourself. Once she got here you admitted that you ordered suicidal threats out of frustration and anger. However it appears that you are suffering from major depression and have likely had depression for many years. Of course continued alcohol abuse is contributing to depressive feelings as it itself a depressant. It is felt that a trial of antidepressant medication for a minimum of 3-6 month may actually help control anxiety and depression symptoms but unfortunately takes the medication at least 3 weeks to start to work. Due to side effects from previous medications he never stayed on them for long enough to do any good. I therefore suggest use of citalopram as it has the least amount of side effects particularly that would affect your brain function. Suggest 20 mg tablet once daily in the morning and continuing it for a minimum of 3 months to see if it can truly help relieve depressive symptoms. If you feel you do have a problem with alcohol use then I would advise follow-up with [facility] for counseling services. The number there is [phone]. Of note all the lab tests done through the ED and check up on your heart last night did not reveal any signs of heart related illness. Her blood pressure was also normal throughout the night at 122/85. At this time was not recommended that you require any blood pressure reduction medications. Chest pains may be due to inflammation of the food pipe from alcohol use disorder and it can cause central stabbing and pressure pains intermittently mimicking a heart attack. - My Orders Last 24 Hours: My Active Orders 04/27/17 22:05 EKG Documentation Completion [RC] STAT Chest 1V Frontal [CR] Stat 04/27/17 23:30 Dextrose 5%-0.9% NaCl [Dextrose 5%-Normal Saline] 1,000 ml IV ASDIRECTED 04/28/17 00:30 Dextrose 5%-0.9% NaCl [Dextrose 5%-Normal Saline] 1,000 ml IV ASDIRECTED - Assessment/Plan Last 24 Hours: My Active Orders 04/27/17 22:05 EKG Documentation Completion [RC] STAT Chest 1V Frontal [CR] Stat 04/27/17 23:30 Dextrose 5%-0.9% NaCl [Dextrose 5%-Normal Saline] 1,000 ml IV ASDIRECTED 04/28/17 00:30 Dextrose 5%-0.9% NaCl [Dextrose 5%-Normal Saline] 1,000 ml IV ASDIRECTED
[2017-04-27] MEDS ORDERED: Aluminum Hydroxide/Magnesium Hydroxide/Simethicone Susp 30 ML Cup PO ONE (22:21)
[2017-04-27] MEDS ORDERED: Dextrose 5%-0.9% NaCl 1,000 ML IV SCH (23:30)
[2017-04-28] MEDS ORDERED: Dextrose 5%-0.9% NaCl 1,000 ML IV SCH (00:30)
[2017-04-28 04:45] VITALS: BP 122/92
--- NOTE | 2017-04-28 07:13 | CR ---
Chest: Portable view of the chest was obtained. Comparison: Prior chest x-ray of 05/26/16. Heart size and mediastinum are normal. Lungs are clear. Bony structures are grossly intact. Impression: 1. Nothing acute is identified on portable chest x-ray. Diagnostic code #1
== END 2017-04-28 06:13 | disposition home or self-care (01) ==
LOC: JD.ED 21:56
DX: F32.9 Major depressive disorder, single episode, unspecified (principal); R07.89 Other chest pain; F10.929 Alcohol use, unspecified with intoxication, unspecified; I10 Essential (primary) hypertension; Z79.899 Other long term (current) drug therapy; F17.210 Nicotine dependence, cigarettes, uncomplicated; Z88.1 Allergy status to other antibiotic agents; Z88.0 Allergy status to penicillin; Y90.0 Blood alcohol level of less than 20 mg/100 ml
CPT/HCPCS: 36415; 71045; 71045-26; 80053; 80306; 82150; 82553; 83735; 84443; 84484; 85025; 93005; 93010; 96361; 96374; 96375; 99285; 99285-25; A9270-GY; G0480; J2060; J2765; J7042

== ENCOUNTER 2018-05-28 19:47 | Emergency (ER) | payer MEDICAID ==
--- NOTE | 2018-05-28 20:02 | EDM.PDOC ---
ED HPI GENERAL MEDICAL PROBLEM - General Chief Complaint: Cardiovascular Problem Stated Complaint: CHEST PAIN/RIGHT ARM PAIN Time Seen by Provider: 05/28/18 19:59 Source of Information: Reports: Patient History Limitations: Reports: No Limitations - History of Present Illness INITIAL COMMENTS - FREE TEXT/NARRATIVE: 48-year-old male attends the ED due to persistent right-sided chest pain right upper precordium radiating into the left side of his neck and down the right arm to his fingers. States been present since yesterday morning and bothers him off and on and more frequently and perhaps a little more severe today. He is anxious. He's been off his BuSpar and clonidine for 2 days as he ran out of medication he did get them refilled today and did take a clonidine right away when he got his prescriptions early this afternoon. He's been feeling slightly dizzy lightheaded with no nausea or vomiting. He has chronic GERD and had quite bad reflux this morning. He has no known coronary disease. He is a cigarette smoker however. No injuries to the chest wall that he knows of. Denies cough or sputum production. Onset: Gradual Onset Date: 05/27/18 (Symptoms started yesterday morning Intermittent off-and- on pain right precordium radiating to his right arm and right side of his neck intermittently suggest Musca skeletal etiology. ) Duration: Hour(s):, Intermittent, Waxing/Waning Location: Reports: Chest (Right upper precordial chest right lateral neck with radicular pain into his right arm mostly medial aspect towards thumb.), Upper Extremity, Right Quality: Reports: Stabbing, Other Severity: Mild Improves with: Reports: None Worsens with: Reports: None Context: Denies: Activity, Exercise, Lifting, Sick Contact, Trauma, Other Associated Symptoms: Reports: Chest Pain, Shortness of Breath, Other (Dizziness lightheadedness). Denies: No Other Symptoms, Confusion, Cough, cough w sputum, Diaphoresis, Fever/Chills, Headaches, Loss of Appetite, Malaise (See history of present illness), Nausea/Vomiting, Rash, Seizure, Syncope, Weakness Treatments POTATO [employer]TER: Reports: Other (see below) (He took 2 full GABRIEL to 25 mg aspirin before coming to the ED.) Chest Pain Score (Numeric/FACES): 4 - Related Data Allergies Allergy/AdvReac Type Severity Reaction Status Date / Time amoxicillin [Amoxicillin] Allergy Rash Verified 05/28/18 21:03 Penicillins Allergy Rash Verified 05/28/18 21:03 Home Meds: Home Meds Diclofenac Sodium [Voltaren] 50 mg PO TID #24 tab.ec 05/28/18 [Rx] Gluc/Gigi-Msm#2/C/D3/Aidan/Born [Axwzlruhsa-Kvoohzgbaia-JFX] 1 tab PO DAILY 05/28 [History] busPIRone [Buspar] 30 mg PO DAILY 05/28/18 [History] cloNIDine [Catapres] 0.1 mg PO BEDTIME 05/28/18 [History] lamoTRIgine [Lamotrigine] 200 mg PO DAILY 05/28/18 [History] predniSONE [Deltasone] 20 mg PO ASDIRECTED #15 tablet 05/28/18 [Rx] traZODone HCl [Trazodone HCl] 100 mg PO DAILY 05/28/18 [History] Past Medical History - Past Health History Medical/Surgical History: Denies Medical/Surgical History Cardiovascular History: Reports: Arrhythmia, Hypertension Gastrointestinal History: Reports: Diverticulosis, GERD (Right severe GERD almost on a daily basis.), Other (See Below) (History of diverticulitis on 2 or 3 occasions) Psychiatric History: Reports: Addiction, Anxiety (BuSpar for anxiety.), Other ( See Below) (Chronic anxiety. 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 Denies: Shortness of Breath, Wheezing, Cough, Sputum, Hemoptysis, Other Cardiovascular: Reports: Chest Pain (Right precordial chest discomfort which she describes as sharp stabbing with a bit of ache to it), Lightheadedness. Denies: Blood Pressure Problem, Claudication, Dyspnea on Exertion, Edema (Last couple of days.), Orthopnea, Palpitations Endocrine: Reports: No Symptoms GI/Abdominal: Reports: Abdominal Pain (Epigastric discomfort quite often. He has quite severe GERD.). Denies: Constipation, Diarrhea, Decreased Appetite, Difficulty Swallowing, Distension, Flatus, Hematemesis, Hematochezia, Melena, Mucous in Stool, Nausea : Reports: No Symptoms Musculoskeletal: Reports: Neck Pain, Shoulder Pain, Arm Pain (Right upper extremity discomfort and pain radiating from the chest.) Skin: Reports: No Symptoms Neurological: Reports: No Symptoms Psychiatric: Reports: Anxiety, Other (Chronic insomnia) Hematologic/Lymphatic: Reports: No Symptoms Immunologic: Reports: No Symptoms ED EXAM, GENERAL - Physical Exam Exam: See Below Exam Limited By: No Limitations General Appearance: Alert, WD/WN, Anxious, Mild Distress, Other (Vital signs are normal.) Throat/Mouth: Normal Inspection, Normal Oropharynx Head: Atraumatic, Normocephalic Neck: Normal Inspection, Supple, Non-Tender, Full Range of Motion. No: Carotid Bruit, Lymphadenopathy (L), Lymphadenopathy (R) Respiratory/Chest: Normal Breath Sounds, Respiratory Distress (Mild tachypnea at rest.), Rhonchi (Few rhonchi both bases that improve with deep breathing. Appears to had some basal atelectasis that improve with deep breathing), Other ( On comparison to the left precordial chest he has significant pain on ribs 234 and 5 midclavicular line to palpation.). No: No Accessory Muscle Use Cardiovascular: Normal Peripheral Pulses, Regular Rate, Rhythm, No Edema, No Gallop, No Murmur, No Rub Peripheral Pulses: 3+: Posterior Tibial (L), Posterior Tibial (R), Dorsalis Pedis (L), Dorsalis Pedis (R) GI/Abdominal: Normal Bowel Sounds, Soft, Non-Tender, No Organomegaly, No Abnormal Bruit, No Mass, Pelvis Stable Back Exam: Normal Inspection, Full Range of Motion. No: CVA Tenderness (L), CVA Tenderness (R) Extremities: Normal Inspection, Normal Range of Motion, Non-Tender, No Pedal Edema, Normal Capillary Refill, Other (His full unopposed range of motion of his entire right shoulder with no evidence of rotator cuff tendinitis. There is mild tenderness over the coracoid process only.) Neurological: Alert, Oriented, CN II-XII Intact, Normal Cognition, Normal Gait Psychiatric: Anxious Skin Exam: Warm, Dry, Intact, Normal Color, No Rash EKG INTERPRETATION EKG Date: 05/28/18 Time: 20:02 Rhythm: NSR Rate (Beats/Min): 85 [place]: Normal P-Wave: Present QRS: Other (There are Q waves in V1 and V2. Consider possible old anteroseptal myocardial infarction.) ST-T: Depressed (Mild ST segment depression in V4 and V5 only which is nonspecific.) QT: Prolonged (Mildly prolonged) EKG Interpretation Comments: Abnormal ECG. No signs of acute ischemia. Course - Vital Signs Last Recorded V/S: Last Vital Signs Temp 37.0 C 05/28/18 20:04 Pulse 80 05/28/18 20:04 Resp 20 05/28/18 20:04 BP 139/89 05/28/18 20:04 Pulse Ox 98 05/28/18 20:04 - Orders/Labs/Meds Orders: Active Orders 24 hr Category Date Time Status EKG Documentation Completion [RC] STAT Care 05/28/18 20:12 Active Chest 1V Frontal [CR] Stat Exams 05/28/18 20:12 Taken Labs: Laboratory Tests 05/28/18 05/28/18 05/28/18 Range/Units 20:24 20:24 20:24 WBC 8.88 (4.23-9.07) K/mm3 RBC 4.81 (4.63-6.08) M/mm3 Hgb 14.4 (13.7-17.5) gm/L Hct 43.1 (40.1-51.0) % MCV 89.6 (79.0-92.2) fl MCH 29.9 (25.7-32.2) pg MCHC 33.4 (32.2-35.5) g/dl RDW Std Deviation 43.0 (35.1-43.9) fL Plt Count 312 (163-337) K/mm3 MPV 8.6 L (9.4-12.3) fl Neutrophils % (Manual) 63 H (40-60) % Band Neutrophils % 0 (0-10) % Lymphocytes % (Manual) 33 (20-40) % Atypical Lymphs % 0 % Monocytes % (Manual) 1 L (2-10) % Eosinophils % (Manual) 3 (0.8-7.0) % Basophils % (Manual) 0 L (0.2-1.2) Platelet Estimate Adequate RBC Morph Comment Normal Sodium 144 (136-145) mEq/L Potassium 3.3 L (3.5-5.1) mEq/L Chloride 105 (98-107) mEq/L Carbon Dioxide 29 (21-32) mEq/L Anion Gap 13.3 (5-15) BUN 12 (7-18) mg/dL Creatinine 0.9 (0.7-1.3) mg/dL Est Cr Clr Drug Dosing 103.95 mL/min Estimated GFR (MDRD) > 60 (>60) mL/min BUN/Creatinine Ratio 13.3 L (14-18) Glucose 97 (74-106) mg/dL Calcium 9.1 (8.5-10.1) mg/dL Magnesium 1.8 (1.8-2.4) mg/dl Total Bilirubin 0.6 (0.2-1.0) mg/dL AST 17 (15-37) U/L ALT 15 L (16-63) U/L Alkaline Phosphatase 75 (46-116) U/L CK-MB (CK-2) 1.5 (0-3.6) ng/ml Troponin I < 0.017 (0.00-0.056) ng/mL NT-Pro-B Natriuret Pep 48 (0-125) pg/mL Total Protein 6.8 (6.4-8.2) g/dl Albumin 4.0 (3.4-5.0) g/dl Globulin 2.8 gm/dL Albumin/Globulin Ratio 1.4 (1-2) Meds: Medications Discontinued Medications Generic Name Dose Route Start Last Admin Trade Name Freq PRN Reason Stop Dose Admin Sodium Chloride 1,000 mls @ 100 mls/hr 05/28/18 20:15 05/28/18 20:29 Normal Saline IV 100 mls/hr ASDIRECTED MELODY Administration Ketorolac Tromethamine 30 mg 05/28/18 20:15 05/28/18 20:29 Toradol IVPUSH 30 mg ONETIME MELODY Administration Prednisone 20 mg 05/28/18 21:54 05/28/18 22:08 Prednisone PO 05/28/18 21:55 20 mg ONETIME ONE Administration - Radiology Interpretation Free Text/Narrative:: 48-year-old male presents to the ED with right-sided upper anterior chest pain radiating to his right lateral neck and down his right arm. Examination reveals lungs to be clear. Heart is sinus. ECG suggests possible old anteroseptal myocardial infarction although the patient has no history thereof. He does have diffuse right anterior chest wall pain ribs 234 and 5 on palpation right side. I believe he has referred pain into his right upper extremity and right lateral neck from the chest wall. I believe his current chest pain is chest wall in origin. Plan cardiac workup will be carried out with 12 view chest x-ray to be done. Will give Toradol 30 mg IV. IV will be normal saline 100 mils per hour. - Re-Assessments/Exams Free Text/Narrative Re-Assessment/Exam: 05/28/18 21:00: Chest x-ray done portably is within normal limits. Lungs are slightly hyperinflated. Cardiac silhouette is normal. No pneumothorax. No pulmonary infiltrates. 05/28/18 21:41 Labs reveal a normal white count at 8.88. Frontal 63% neutrophils and no band cells. Hemoglobin is 14.4. Hematocrit is 43.1. Platelet count is 312,000. Sodium 144 with a potassium slightly low at 3.3. Chloride 105 with a bicarbonate of 29. Anion gap is 13.3. Urine is 12 with a creatinine of 0.9. GFR is greater than 60. Glucose is 97 with a calcium of 9.1. Magnesium is normal at 1.8. Liver function is normal. CK-MB is 1.5 with a troponin I of less than 0.017. BNP is 48. Total protein 6.8 with an albumin fraction of 4.0. Patient vies of the findings. He seemed quite reassured that his heart was not part of the problem. Clinically he still has significant discomfort on palpation of ribs 2,3,4 and 5 in the midclavicular line right upper chest. I feel this pain is referring discomfort into his right upper extremity. He'll is a small possibility that he has some developing shingles. I've advised him to keep an eye out for a rash over the next 5-7 days. I'm going to place him on Voltaren 50 mg 3 times daily for the next 8 days and Deltasone 20 mg twice daily for 5 days and then once in the morning for another 5 days to relieve inflammation in his chest wall. First dose of prednisone 20 mg was given in the ED at the time of discharge. He did admit that his pain was over 50% better after the Toradol I V. He will follow-up in clinic if any further problems occur. Departure - Departure Time of Disposition: 21:54 Disposition: Home, Self-Care 01 Condition: Fair Clinical Impression: Non-cardiac chest pain, Anterior chest wall pain, Right upper limb pain Prescriptions: Diclofenac Sodium [Voltaren] 50 mg PO TID #24 tab.ec predniSONE [Deltasone] 20 mg PO ASDIRECTED #15 tablet Instructions: Chest Wall Pain, [id number] Referrals: Aracely Torres MD [Primary Care Provider] - Forms: ED Department Discharge Additional Instructions: Evaluation the emergency room today in regards to development of right upper anterior chest pain yesterday which has worsened as the day has gone on today. Pain is referred into the right side of your neck intermittently and down the right upper extremity particularly the shoulder. Cardiac workup was carried out in the ED and proved to be completely normal. There is no evidence of heart related illness. You're very tender in the chest wall particularly ribs to 3 and 4 in the right upper anterior chest which I believe is due to inflammation of the lining of each rib and the nerves that supply them. These nerves travel down the right arm and I think the pain going into her arm is referred from the chest wall. He also travels slightly up into the right side of your neck. Treatment is therefore pain medication to reduce inflammation. Use Deltasone 20 mg twice daily with breakfast and supper for 5 days and then once in the morning only for another 5 days. This medication should be taken with food. Also use Voltaren 50 mg 3 times daily for the next 8 days to reduce pain and inflammation in the chest wall. Expect gradual improvement over the next 3-5 days. - My Orders Last 24 Hours: My Active Orders 05/28/18 20:12 EKG Documentation Completion [RC] STAT Chest 1V Frontal [CR] Stat - Assessment/Plan Last 24 Hours: My Active Orders 05/28/18 20:12 EKG Documentation Completion [RC] STAT Chest 1V Frontal [CR] Stat
[2018-05-28 20:07] VITALS: BP 139/89
[2018-05-28] MEDS ORDERED: Ketorolac 30 MG/ML SDV IVPUSH SCH (20:15)
[2018-05-28] MEDS ORDERED: Sodium Chloride 0.9% 1,000 ML IV SCH (20:15)
[2018-05-28] MEDS ORDERED: predniSONE 20 MG Tab PO ONE (21:54)
--- NOTE | 2018-05-29 15:51 | CR ---
Chest: Portable view of the chest was obtained. Comparison: Prior chest x-ray of 04/27/17. Heart size and mediastinum are within normal limits. Lungs are clear. No acute parenchymal change is seen. Degenerative endplate spurring scattered is seen within the spine. Impression: 1. Nothing acute is seen on portable chest x-ray. Diagnostic code #2
== END 2018-05-28 22:13 | disposition home or self-care (01) ==
LOC: JD.ED 19:47 → SUPCPDRO 19:47 → JD.ED 22:13
DX: R07.81 Pleurodynia (principal); M79.621 Pain in right upper arm; Z88.1 Allergy status to other antibiotic agents; Z88.0 Allergy status to penicillin
CPT/HCPCS: 36415; 71045; 80053; 82553; 83735; 83880; 84484; 85007; 85027; 93005; 96361; 96374; 99285; A9270; J1885; J7040; 93010

== ENCOUNTER 2019-09-09 16:42 | Emergency (ER) | payer MEDICAID ==
[2019-09-09 16:56] VITALS: BP 171/107; PULSE 82
[2019-09-09] MEDS ORDERED: Sodium Chloride 0.9% 10 ML Syringe FLUSH PRN (16:56)
[2019-09-09] MEDS ORDERED: Ketorolac 30 MG/ML SDV IVPUSH ONE (17:08)
[2019-09-09] MEDS ORDERED: HYDROmorphone 0.5 MG/0.5 ML Syringe IVPUSH ONE ×2 (17:08→19:32)
[2019-09-09] MEDS ORDERED: Ondansetron 4 MG/2 ML SDV IVPUSH ONE (17:08)
[2019-09-09] MEDS ORDERED: Sodium Chloride 0.9% 1,000 ML IV SCH (17:15)
--- NOTE | 2019-09-09 17:17 | EDM.PDOC ---
ED HPI GENERAL MEDICAL PROBLEM - General Chief Complaint: Gastrointestinal Problem Stated Complaint: LOW ABD AND BACK PAIN Time Seen by Provider: 09/09/19 16:50 Source of Information: Reports: Patient History Limitations: Reports: No Limitations - History of Present Illness INITIAL COMMENTS - FREE TEXT/NARRATIVE: Patient is a 49-year-old male who presents to the emergency department with right lateral abdominal pain and right flank pain that radiates down into RLQ and groin. He states that the pain began yesterday a more local was localized to his right lateral abdomen below the rib cage. He states it is been getting progressively worse since yesterday. He describes it as a constant pain with intermittent stabbing pain that comes and goes. He had emesis x5 yesterday with the last episode being around 3:00 this morning. He has not vomited since that time. He did have a small amount of diarrhea yesterday but states he has had none today. He denies a known fever or chills, however his states that he felt warm this morning. Patient does still have his gallbladder and appendix. He has no history of kidney stones. Denies any visible blood in his urine. - Related Data Allergies Allergy/AdvReac Type Severity Reaction Status Date / Time Penicillins Allergy Severe Rash Verified 09/09/19 16:56 amoxicillin [Amoxicillin] Allergy Rash Verified 05/28/18 21:03 Home Meds: Home Meds cloNIDine [Catapres] 0.1 mg PO BEDTIME 05/28/18 [History] lamoTRIgine [Lamotrigine] 200 mg PO BID 05/28/18 [History] traZODone HCl [Trazodone HCl] 150 mg PO BEDTIME 05/28/18 [History] Pantoprazole Sodium [Protonix] 40 mg PO DAILY 10/07/18 [History] Dicyclomine [Bentyl] 20 mg PO Q8H PRN #10 tablet 09/09/19 [Rx] Ondansetron [Zofran ODT] 4 mg PO Q6H PRN #10 tab.dis 09/09/19 [Rx] Past Medical History - Past Health History Medical/Surgical History: Denies Medical/Surgical History Cardiovascular History: Reports: Hypertension Gastrointestinal History: Reports: Diverticulosis, Gastritis, GERD Musculoskeletal History: Reports: Arthritis, Fracture Other Musculoskeletal History: fx L wrist Psychiatric History: Reports: Addiction, Anxiety, Bipolar, Depression - Past Surgical History HEENT Surgical History: Reports: Oral Surgery GI Surgical History: Reports: Colonoscopy, EGD Social & Family History - Family History Family Medical History: Noncontributory - Tobacco Use Smoking Status *Q: Current Every Day Smoker Years of Tobacco use: 35 Packs/Tins Daily: 1 - Caffeine Use Caffeine Use: Reports: Coffee, Soda - Living Situation & Occupation Living situation: Reports: , with Spouse 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) ED ROS GENERAL - Review of Systems Review Of Systems: See Below Constitutional: Reports: No Symptoms HEENT: Reports: No Symptoms Respiratory: Reports: No Symptoms Cardiovascular: Reports: No Symptoms Endocrine: Reports: No Symptoms GI/Abdominal: Reports: Abdominal Pain (Right lateral), Diarrhea, Nausea, Vomiting : Reports: Flank Pain (Right), Other (Right groin pain) Musculoskeletal: Reports: No Symptoms Skin: Reports: No Symptoms Neurological: Reports: No Symptoms Psychiatric: Reports: No Symptoms Hematologic/Lymphatic: Reports: No Symptoms Immunologic: Reports: No Symptoms ED EXAM, GI/ABD - Physical Exam Exam: See Below Exam Limited By: No Limitations General Appearance: Alert, WD/WN, No Apparent Distress Respiratory/Chest: No Respiratory Distress, Lungs Clear, Normal Breath Sounds, No Accessory Muscle Use, Chest Non-Tender Cardiovascular: Normal Peripheral Pulses, Regular Rate, Rhythm, No Edema, No Gallop, No JVD, No Murmur, No Rub GI/Abdominal Exam: Normal Bowel Sounds, Soft, No Organomegaly, No Distention, No Abnormal Bruit, No Mass, Pelvis Stable, Tender (Right lateral upper and lower ) Back Exam: Normal Inspection, Full Range of Motion, CVA Tenderness (R) Neurological: Alert, Oriented, CN II-XII Intact, Normal Cognition, Normal Gait, Normal Reflexes, No Motor/Sensory Deficits Psychiatric: Normal Affect, Normal Mood Skin Exam: Warm, Dry, Intact, Normal Color, No Rash Course - Vital Signs Last Recorded V/S: Last Vital Signs Temp 98.5 F 09/09/19 16:53 Pulse 82 09/09/19 16:53 Resp 16 09/09/19 16:53 BP 171/107 H 09/09/19 16:53 Pulse Ox 94 L 09/09/19 16:53 - Orders/Labs/Meds Orders: Active Orders 24 hr Category Date Time Status Peripheral IV Care [RC] . DIRECTED Care 09/09/19 16:57 Active Peripheral IV Insertion Adult [OM.PC] Stat Oth 09/09/19 16:57 Ordered Labs: Laboratory Tests 09/09/19 09/09/19 09/09/19 Range/Units 17:04 17:04 17:04 WBC 10.85 H (4.23-9.07) K/mm3 RBC 5.11 (4.63-6.08) M/mm3 Hgb 15.2 (13.7-17.5) gm/dl Hct 46.0 (40.1-51.0) % MCV 90.0 (79.0-92.2) fl MCH 29.7 (25.7-32.2) pg MCHC 33.0 (32.2-35.5) g/dl RDW Std Deviation 43.0 (35.1-43.9) fL Plt Count 360 H (163-337) K/mm3 MPV 8.6 L (9.4-12.3) fl Neut % (Auto) 65.8 (34.0-67.9) % Lymph % (Auto) 25.3 (21.8-53.1) % [place] % (Auto) 7.1 (5.3-12.2) % Eos % (Auto) 1.0 (0.8-7.0) Baso % (Auto) 0.5 (0.1-1.2) % Neut # (Auto) 7.14 H (1.78-5.38) K/mm3 Lymph # (Auto) 2.75 (1.32-3.57) K/mm3 [place] # (Auto) 0.77 (0.30-0.82) K/mm3 Eos # (Auto) 0.11 (0.04-0.54) K/mm3 Baso # (Auto) 0.05 (0.01-0.08) K/mm3 Sodium 142 (136-145) mEq/L Potassium 3.9 (3.5-5.1) mEq/L Chloride 105 (98-107) mEq/L Carbon Dioxide 27 (21-32) mEq/L Anion Gap 13.9 (5-15) BUN 11 (7-18) mg/dL Creatinine 0.8 (0.7-1.3) mg/dL Est Cr Clr Drug Dosing 115.64 mL/min Estimated GFR (MDRD) > 60 (>60) mL/min BUN/Creatinine Ratio 13.8 L (14-18) Glucose 102 (74-106) mg/dL Calcium 8.6 (8.5-10.1) mg/dL Total Bilirubin 0.6 (0.2-1.0) mg/dL AST 19 (15-37) U/L ALT 22 (16-63) U/L Alkaline Phosphatase 100 (46-116) U/L C-Reactive Protein < 0.2 (<1.0) mg/dL Total Protein 7.0 (6.4-8.2) g/dl Albumin 3.9 (3.4-5.0) g/dl Globulin 3.1 gm/dL Albumin/Globulin Ratio 1.3 (1-2) Lipase 85 (73-393) U/L Urine Color (Yellow) Urine Appearance (Clear) Urine pH (5.0-8.0) Ur Specific [place] (1.005-1.030) Urine Protein (Negative) Urine Glucose (UA) (Negative) Urine Ketones (Negative) Urine Occult Blood (Negative) Urine Nitrite (Negative) Urine Bilirubin (Negative) Urine Urobilinogen (0.2-1.0) Ur Leukocyte Esterase (Negative) Urine RBC (0-5) /hpf Urine WBC (0-5) /hpf Ur Squamous Epith Cells (0-5) /hpf Amorphous Sediment (NOT SEEN) /hpf Urine Bacteria (FEW) /hpf Urine Mucus (FEW) /hpf 06/26/20 Range/Units 18:14 WBC (4.23-9.07) K/mm3 RBC (4.63-6.08) M/mm3 Hgb (13.7-17.5) gm/dl Hct (40.1-51.0) % MCV (79.0-92.2) fl MCH (25.7-32.2) pg MCHC (32.2-35.5) g/dl RDW Std Deviation (35.1-43.9) fL Plt Count (163-337) K/mm3 MPV (9.4-12.3) fl Neut % (Auto) (34.0-67.9) % Lymph % (Auto) (21.8-53.1) % [place] % (Auto) (5.3-12.2) % Eos % (Auto) (0.8-7.0) Baso % (Auto) (0.1-1.2) % Neut # (Auto) (1.78-5.38) K/mm3 Lymph # (Auto) (1.32-3.57) K/mm3 [place] # (Auto) (0.30-0.82) K/mm3 Eos # (Auto) (0.04-0.54) K/mm3 Baso # (Auto) (0.01-0.08) K/mm3 Sodium (136-145) mEq/L Potassium (3.5-5.1) mEq/L Chloride (98-107) mEq/L Carbon Dioxide (21-32) mEq/L Anion Gap (5-15) BUN (7-18) mg/dL Creatinine (0.7-1.3) mg/dL Est Cr Clr Drug Dosing mL/min Estimated GFR (MDRD) (>60) mL/min BUN/Creatinine Ratio (14-18) Glucose (74-106) mg/dL Calcium (8.5-10.1) mg/dL Total Bilirubin (0.2-1.0) mg/dL AST (15-37) U/L ALT (16-63) U/L Alkaline Phosphatase (46-116) U/L C-Reactive Protein (<1.0) mg/dL Total Protein (6.4-8.2) g/dl Albumin (3.4-5.0) g/dl Globulin gm/dL Albumin/Globulin Ratio (1-2) Lipase (73-393) U/L Urine Color Yellow (Yellow) Urine Appearance Slt cloudy H (Clear) Urine pH 7.0 (5.0-8.0) Ur Specific [place] 1.020 (1.005-1.030) Urine Protein 1+ H (Negative) Urine Glucose (UA) Negative (Negative) Urine Ketones Negative (Negative) Urine Occult Blood Negative (Negative) Urine Nitrite Negative (Negative) Urine Bilirubin Negative (Negative) Urine Urobilinogen 0.2 (0.2-1.0) Ur Leukocyte Esterase Negative (Negative) Urine RBC 0-5 (0-5) /hpf Urine WBC Not seen (0-5) /hpf Ur Squamous Epith Cells 0-5 (0-5) /hpf Amorphous Sediment Many H (NOT SEEN) /hpf Urine Bacteria Few (FEW) /hpf Urine Mucus Not seen (FEW) /hpf Meds: Medications Discontinued Medications Generic Name Dose Route Start Last Admin Trade Name Damir PRN Reason Stop Dose Admin Dicyclomine HCl 10 mg 09/09/19 19:32 09/09/19 19:39 Bentyl PO 09/09/19 19:33 10 mg ONETIME ONE Administration Hydromorphone HCl 0.5 mg 09/09/19 17:08 09/09/19 17:20 Dilaudid IVPUSH 09/09/19 17:09 0.5 mg ONETIME ONE Administration Hydromorphone HCl 0.5 mg 09/09/19 19:32 09/09/19 19:40 Dilaudid IVPUSH 09/09/19 19:33 0.5 mg ONETIME ONE Administration Sodium Chloride 1,000 mls @ 999 mls/hr 09/09/19 17:15 09/09/19 17:20 Normal Saline IV 999 mls/hr ASDIRECTED MELODY Administration Ketorolac Tromethamine 30 mg 09/09/19 17:08 09/09/19 17:20 Toradol IVPUSH 09/09/19 17:09 30 mg ONETIME ONE Administration Ondansetron HCl 4 mg 09/09/19 17:08 09/09/19 17:20 Zofran IVPUSH 09/09/19 17:09 4 mg ONETIME ONE Administration Sodium Chloride 10 ml 09/09/19 16:56 09/09/19 17:08 Saline Flush FLUSH 10 ml ASDIRECTED PRN Administration Keep Vein Open - Re-Assessments/Exams Free Text/Narrative Re-Assessment/Exam: Based on patient history and exam, findings are suspicious for a kidney stone. I have ordered a CBC, CMP, CRP, lipase, urinalysis, and a CT scan abdomen pelvis without contrast. We will do a liter of IV fluid bolus, Zofran for nausea, Toradol and Dilaudid for pain. 09/09/19 19:38 Patient's hematology was grossly unremarkable. Urinalysis is still pending. CT scan of the abdomen pelvis showed no renal calculi, ureteral dilatation, or ureteral stone. Patient's appendix was visualized and was without evidence of appendicitis. We will do an ultrasound of his gallbladder to rule out cholecystitis. 09/09/19 19:40 Urinalysis was negative for any blood or infection. Ultrasound of the right upper quadrant normal. Discussed with the patient that he may be suffering from a viral gastroenteritis which would explain the diarrhea and vomiting he had which has since resolved. I will give him another dose of Dilaudid IV as well as Bentyl for the abdominal cramping. We will send a prescription for Zofran and Bentyl and recommend clear liquid diet for the next 24 to 48 hours. Discussed with him that if his symptoms should worsen, would recommend that he return to the emergency department for reevaluation. Departure - Departure Time of Disposition: 19:50 Disposition: Home, Self-Care 01 Condition: Good Clinical Impression: Abdominal pain - Discharge Information *PRESCRIPTION DRUG MONITORING PROGRAM REVIEWED*: No *COPY OF PRESCRIPTION DRUG MONITORING REPORT IN PATIENT NONA: No Prescriptions: Dicyclomine [Bentyl] 20 mg PO Q8H PRN #10 tablet PRN Reason: Abdominal Pain Ondansetron [Zofran ODT] 4 mg PO Q6H PRN #10 tab.dis PRN Reason: Nausea/Vomiting Instructions: Abdominal Pain, Adult, [id number] Referrals: Cliff Herr Jr, MD [Primary Care Provider] - Forms: ED Department Discharge Additional Instructions: You were seen in the emergency department today for right-sided abdominal pain and back pain. Your work-up included blood work, urinalysis, a CT scan of your abdomen pelvis, and an ultrasound of your gallbladder. The results of all these tests were found to be normal. While in the ER you received a liter of IV fluids, Zofran for nausea, Toradol and Dilaudid for pain, as well as Bentyl for abdominal cramping. As we discussed, in light of your normal work-up, it is likely that you are suffering from a viral gastroenteritis also known as a stomach flu. Recommend that you maintain a clear liquid diet for the next 24 to 48 hours. Especially avoid dairy products and fruit juices as this will exacerbate your symptoms. Ensure that you are staying adequately hydrated. A prescription for Zofran for nausea and Bentyl for abdominal cramping has been sent to [facility]. If you should experience any worsening symptoms, please not hesitate to return to the emergency department. Sepsis Event Note (ED) - Evaluation Sepsis Screening Result: No Definite Risk - Focused Exam Vital Signs: Vital Signs Temp Pulse Resp BP Pulse Ox 09/09/19 16:53 98.5 F 82 16 171/107 H 94 L - My Orders Last 24 Hours: My Active Orders 09/09/19 16:57 Peripheral IV Care [RC] . DIRECTED Peripheral IV Insertion Adult [OM.PC] Stat - Assessment/Plan Last 24 Hours: My Active Orders 09/09/19 16:57 Peripheral IV Care [RC] . DIRECTED Peripheral IV Insertion Adult [OM.PC] Stat
--- NOTE | 2019-09-09 18:04 | CT ---
CT abdomen and pelvis Technique: Multiple axial sections were obtained from above the kidneys inferiorly through the pubic symphysis. Intravenous and oral contrast not utilized. Study has been performed as a ureteral stone protocol. Comparison: Prior CT abdomen and pelvis study of 10/07/18. Findings: Kidneys show no abnormal calcifications. No ureteral dilatation or ureteral stone is seen. No bladder calculi are noted. Visualized portions of the lower liver and spleen shows no discrete abnormality. Adrenal glands show no nodule. Pancreas shows no discrete abnormality. Gallbladder contains no calcified gallstones. Aorta shows atherosclerotic calcification. No aneurysm is seen. Appendix is felt to be visualized without evidence of appendicitis. Diverticuli are seen within the sigmoid colon without diverticulitis. No free fluid or inflammatory change is appreciated. Bone window settings show scattered degenerative change within the spine with no acute osseous finding being seen. Impression: 1. No renal calculi, ureteral dilatation or ureteral stone is seen. 2. Nothing acute is appreciated on noncontrast CT study of the abdomen and pelvis performed as a ureteral stone protocol. Diagnostic code #2 This report was dictated in MDT
--- NOTE | 2019-09-09 19:21 | US ---
Limited abdominal ultrasound: Multiple real-time images of the upper right abdomen were obtained. Comparison: No prior ultrasound exam, previous CT abdomen and pelvis study performed earlier on the same day (5:44 PM). Liver shows no focal parenchymal abnormality. Visualized portions of the pancreas appear within normal limits. Inferior vena cava is patent. Gallbladder contains no shadowing gallstones. No gallbladder wall thickening or biliary duct dilatation is seen. Main portal vein shows normal hepatopedal flow. Right kidney shows no hydronephrosis or mass and has a length of 11.4 cm. Impression: 1. No abnormality is identified on right upper quadrant abdominal ultrasound exam. Diagnostic code #1 This report was dictated in MDT
[2019-09-09] MEDS ORDERED: Dicyclomine 10 MG Cap PO ONE (19:32)
== END 2019-09-09 20:13 | disposition home or self-care (01) ==
LOC: JD.ED 16:42
DX: R10.11 Right upper quadrant pain (principal); R10.31 Right lower quadrant pain; F17.210 Nicotine dependence, cigarettes, uncomplicated; I10 Essential (primary) hypertension; K21.9 Gastro-esophageal reflux disease without esophagitis; F31.9 Bipolar disorder, unspecified; F41.9 Anxiety disorder, unspecified; Z88.1 Allergy status to other antibiotic agents; Z88.0 Allergy status to penicillin; Z79.899 Other long term (current) drug therapy
CPT/HCPCS: 36415; 74176; 76705; 80053; 81001; 83690; 85025; 86140; 96361; 96374; 96375; 96376; 99284; A9270; J1170; J1885; J2405; J7030; 99283

== ENCOUNTER 2019-09-10 21:16 | Emergency (ER) | payer MEDICAID ==
[2019-09-10 21:28] VITALS: BP 183/103; PULSE 60
[2019-09-10] MEDS ORDERED: Ketorolac 60 MG/2 ML SDV IM ONE (22:13)
--- NOTE | 2019-09-10 22:15 | EDM.PDOC ---
ED HPI GENERAL MEDICAL PROBLEM - General Chief Complaint: Gastrointestinal Problem Stated Complaint: LOWER BACK PAIN AND ABDOMINAL PAIN Time Seen by Provider: 09/10/19 21:50 Source of Information: Reports: Patient, Family History Limitations: Reports: No Limitations - History of Present Illness INITIAL COMMENTS - FREE TEXT/NARRATIVE: This is a 49-year-old male. He was seen here yesterday for right flank pain. He received a CT scan that showed his appendix noninflamed did not show any kidney stones or diverticulitis and no other acute findings. His ultrasound of the gallbladder was negative. He comes back tonight because he still having pain in that right flank but now it seems to be more localized into his right lower back. He says when he lies down he has constant tightness in that right side when he tries to move or twist or get up he gets sharp pain in his right side and back that would drop him to the floor. Had no fever no chills. He denies any nausea vomiting or diarrhea in the last 24 hours. He has had no fever no chills no cough no congestion. 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 - Related Data Allergies Allergy/AdvReac Type Severity Reaction Status Date / Time Penicillins Allergy Severe Rash Verified 09/09/19 16:56 amoxicillin [Amoxicillin] Allergy Rash Verified 05/28/18 21:03 Home Meds: Home Meds cloNIDine [Catapres] 0.1 mg PO BEDTIME 05/28/18 [History] lamoTRIgine [Lamotrigine] 200 mg PO BID 05/28/18 [History] traZODone HCl [Trazodone HCl] 150 mg PO BEDTIME 05/28/18 [History] Pantoprazole Sodium [Protonix] 40 mg PO DAILY 10/07/18 [History] Dicyclomine [Bentyl] 20 mg PO Q8H PRN #10 tablet 09/09/19 [Rx] Ondansetron [Zofran ODT] 4 mg PO Q6H PRN #10 tab.dis 09/09/19 [Rx] Cyclobenzaprine [Flexeril] 10 mg PO TID PRN #20 tab 09/10/19 [Rx] Past Medical History - Past Health History Medical/Surgical History: Denies Medical/Surgical History Cardiovascular History: Reports: Hypertension Gastrointestinal History: Reports: Diverticulosis, Gastritis, GERD Musculoskeletal History: Reports: Arthritis, Fracture Other Musculoskeletal History: fx L wrist Psychiatric History: Reports: Addiction, Anxiety, Bipolar, Depression - Past Surgical History HEENT Surgical History: Reports: Oral Surgery GI Surgical History: Reports: Colonoscopy, EGD Social & Family History - Family History Family Medical History: Noncontributory - Tobacco Use Smoking Status *Q: Current Every Day Smoker Years of Tobacco use: 30 Packs/Tins Daily: 1 - Caffeine Use Caffeine Use: Reports: Coffee, Soda - Living Situation & Occupation Living situation: Reports: , with Spouse Occupation: Employed ([employer]) ED ROS GENERAL - Review of Systems Review Of Systems: See Below Constitutional: Denies: Fever, Chills HEENT: Reports: No Symptoms Respiratory: Reports: No Symptoms Cardiovascular: Reports: No Symptoms Endocrine: Reports: No Symptoms GI/Abdominal: Reports: Abdominal Pain : Reports: No Symptoms Musculoskeletal: Reports: Back Pain Skin: Reports: No Symptoms Neurological: Reports: No Symptoms Psychiatric: Reports: No Symptoms Hematologic/Lymphatic: Reports: No Symptoms ED EXAM, GI/ABD - Physical Exam Exam: See Below Exam Limited By: No Limitations General Appearance: Alert, WD/WN, No Apparent Distress Eyes: Bilateral: Normal Appearance Ears: Normal External Exam Nose: Normal Inspection Throat/Mouth: Normal Inspection, Normal Lips, Normal Voice, No Airway Compromise Head: Normocephalic Neck: Supple Respiratory/Chest: No Respiratory Distress Back Exam: Normal Inspection, Other (I palpate his lower back area he complains of pain at the iliopsoas muscle and the paraspinal muscles on that right side but not on the left side, if I push in deeply he gets sharp pain and he says that is where it is hurting him or where it seems to grab him. It also along the iliac bone on that right side is somewhat tender on palpation. He is able to stand and walk but he complains of tightness in his right lower back today.) Extremities: Normal Inspection, Normal Range of Motion Neurological: Alert, Oriented Psychiatric: Normal Affect, Normal Mood Skin Exam: Warm, Dry Course - Vital Signs Last Recorded V/S: Last Vital Signs Temp 98.8 F 09/10/19 21:25 Pulse 60 09/10/19 21:25 Resp 18 09/10/19 21:25 BP 183/103 H 09/10/19 21:25 Pulse Ox 93 L 09/10/19 21:25 Departure - Departure Time of Disposition: 22:13 Disposition: Home, Self-Care 01 Condition: Good Clinical Impression: Back muscle spasm Lumbar sprain Qualifiers: Encounter type: initial encounter Qualified Code(s): S33.5XXA - Sprain of ligaments of lumbar spine, initial encounter - Discharge Information *PRESCRIPTION DRUG MONITORING PROGRAM REVIEWED*: Not Applicable *COPY OF PRESCRIPTION DRUG MONITORING REPORT IN PATIENT NONA: Not Applicable Prescriptions: Cyclobenzaprine [Flexeril] 10 mg PO TID PRN #20 tab PRN Reason: Spasms Instructions: Muscle Cramps and Spasms, [id number], Lumbar Sprain Referrals: Cliff Herr Jr, MD [Primary Care Provider] - Additional Instructions: Use ice to your back on and off to help with the tightness and soreness of the muscles, take the Flexeril as needed for that sharp stabbing pain that grabs you, take some Aleve or ibuprofen to help with the inflammation, avoid any twisting bending or lifting for the next 3 to 4 days, follow-up with your family doctor later this week for recheck, return to the ER if needed Sepsis Event Note (ED) - Evaluation Sepsis Screening Result: No Definite Risk - Focused Exam Vital Signs: Vital Signs Temp Pulse Resp BP Pulse Ox 09/10/19 21:25 98.8 F 60 18 183/103 H 93 L
== END 2019-09-10 22:40 | disposition home or self-care (01) ==
LOC: JD.ED 21:16
DX: S33.5XXA Sprain of ligaments of lumbar spine, initial encounter (principal); I10 Essential (primary) hypertension; K21.9 Gastro-esophageal reflux disease without esophagitis; F41.9 Anxiety disorder, unspecified; F31.9 Bipolar disorder, unspecified; F17.210 Nicotine dependence, cigarettes, uncomplicated; Z79.899 Other long term (current) drug therapy; Z88.0 Allergy status to penicillin; Z88.1 Allergy status to other antibiotic agents; X50.1XXA Overexertion from prolonged static or awkward postures, initial encounter
CPT/HCPCS: 96372; 99283; J1885

== ENCOUNTER 2021-11-11 12:49 | Emergency (ER) | payer MEDICAID | END 2021-11-11 14:23 | LOC: JD.ED 12:49 | DX: Z53.21 Procedure and treatment not carried out due to patient leaving prior to being seen by health care provider (principal) ==

== ENCOUNTER 2021-12-08 19:16 | Emergency (ER) | payer MEDICAID ==
[2021-12-08 19:40] VITALS: BP 146/93; PULSE 100
[2021-12-08] MEDS ORDERED: Ketorolac 15 MG/ML SDV IM STA (19:54)
[2021-12-08] MEDS ORDERED: Gabapentin 300 MG Cap PO ONE (19:55)
[2021-12-08] MEDS ORDERED: Ketorolac 30 MG/ML SDV ONE (20:16)
[2021-12-08] MEDS ORDERED: Ketorolac 30 MG/ML SDV IM ONE (20:21)
== END 2021-12-08 20:26 | disposition home or self-care (01) ==
LOC: JD.ED 19:16
DX: M54.16 Radiculopathy, lumbar region (principal); M62.830 Muscle spasm of back; I10 Essential (primary) hypertension; K21.9 Gastro-esophageal reflux disease without esophagitis; M19.90 Unspecified osteoarthritis, unspecified site; Z88.0 Allergy status to penicillin; Z79.899 Other long term (current) drug therapy
CPT/HCPCS: 96372; 99283; A9270; J1885; 99284

== ENCOUNTER 2022-06-10 00:09 | Emergency (ER) | payer MEDICAID ==
[2022-06-10] MEDS ORDERED: Sodium Chloride 0.9% 10 ML Syringe FLUSH PRN (00:17)
[2022-06-10] MEDS ORDERED: Pantoprazole 40 MG Vial IVPUSH ONE (00:18)
[2022-06-10] MEDS ORDERED: HYDROmorphone 0.5 MG/0.5 ML Syringe IVPUSH ONE (00:18)
[2022-06-10] MEDS ORDERED: Alum Hydrox/Mag Hydrox/Simeth 30 ML, Lidocaine 2% 15 ML PO ONE ×2 (00:18)
[2022-06-10] MEDS ORDERED: Tenecteplase 50 MG Kit ONE (00:26)
[2022-06-10] MEDS ORDERED: Morphine 4 MG/ML Syringe IVPUSH ONE (00:35)
[2022-06-10] MEDS ORDERED: Nitroglycerin 0.4 MG Tab.SL SL ONE (00:35)
[2022-06-10] MEDS ORDERED: Heparin Sodium 5,000 Units/ML Vial IVPUSH ONE (00:36)
[2022-06-10] MEDS ORDERED: Heparin Sodium/D5W 25,000 UNITS/500 ML BAG IV SCH (00:45)
[2022-06-10] MEDS: Lactated Ringers 1,000 ML IV ONE ×2 (00:53→03:29)
[2022-06-10] MEDS ORDERED: Iopamidol 755 Mg/ML 100 ML Bottle IVPUSH ONE (01:22)
[2022-06-10] MEDS ORDERED: atorvaSTATin 20 MG Tab PO ONE (01:46)
[2022-06-10] MEDS ORDERED: Metoprolol Succinate 25 MG Tab.ER PO ONE (01:47)
[2022-06-10] MEDS ORDERED: Lactated Ringers 1,000 ML IV ONE (03:27)
[2022-06-10 06:22] VITALS: BP 122/81; PULSE 67
== END 2022-06-10 06:45 ==
LOC: JD.ED 00:09
DX: I21.02 ST elevation (STEMI) myocardial infarction involving left anterior descending coronary artery (principal); R00.1 Bradycardia, unspecified; I10 Essential (primary) hypertension; K21.9 Gastro-esophageal reflux disease without esophagitis; M19.90 Unspecified osteoarthritis, unspecified site; Z72.0 Tobacco use; Z88.0 Allergy status to penicillin; Z79.899 Other long term (current) drug therapy
CPT/HCPCS: 36415; 71045; 71275; 80053; 84484; 85025; 93005; 96365; 96366; 96375; 96376; 99285; A9270; C9113; J1170; J1644; J2270; J3101; J3490; J7120; Q9967

== ENCOUNTER 2022-06-26 18:09 | Emergency (ER) | payer MEDICAID ==
[2022-06-26 18:20] VITALS: PULSE 69
[2022-06-26 21:06] VITALS: BP 139/83
== END 2022-06-26 21:02 | disposition home or self-care (01) ==
LOC: JD.ED 18:09
DX: R53.83 Other fatigue (principal); I10 Essential (primary) hypertension; I25.2 Old myocardial infarction; K21.9 Gastro-esophageal reflux disease without esophagitis; Z95.5 Presence of coronary angioplasty implant and graft; Z88.0 Allergy status to penicillin; Z79.899 Other long term (current) drug therapy; Z87.891 Personal history of nicotine dependence
CPT/HCPCS: 36415; 70450; 70450-26; 71045; 71045-26; 80053; 83735; 84484; 85025; 85379; 85610; 93005; 93010; 99283; 99285

== ENCOUNTER 2023-03-30 16:16 | Emergency (ER) | payer MEDICAID ==
[2023-03-30 16:34] VITALS: PULSE 98
[2023-03-30] MEDS ORDERED: Acetaminophen 325 MG Tab PO ONE (16:37)
[2023-03-30] MEDS ORDERED: Diphtheria,Pertussis(Acell),Tetanus Vaccine 0.5 ML Syringe IM ONE (16:38)
[2023-03-30] MEDS ORDERED: Bacitracin Oint 15 GM Tube TOP ONE (17:16)
[2023-03-30 19:04] VITALS: BP 130/90
== END 2023-03-30 17:25 | disposition home or self-care (01) ==
LOC: JD.ED 16:16
DX: S01.81XA Laceration without foreign body of other part of head, initial encounter (principal); I10 Essential (primary) hypertension; I25.2 Old myocardial infarction; K21.9 Gastro-esophageal reflux disease without esophagitis; Z88.0 Allergy status to penicillin
CPT/HCPCS: 70450; 90471; 90715; 99283; A9270

== ENCOUNTER 2024-01-27 14:16 | Emergency (ER) | payer MEDICAID ==
[2024-01-27] MEDS: Lidocaine 1% 10 ML MDV INJECT ONE (14:45)
[2024-01-27 19:56] VITALS: BP 138/92; PULSE 89
== END 2024-01-27 16:30 | disposition home or self-care (01) ==
LOC: JD.ED 14:16 → SUPCPDRO 14:16 → JD.ED 16:30
DX: S51.812A Laceration without foreign body of left forearm, initial encounter (principal); I10 Essential (primary) hypertension; I25.2 Old myocardial infarction; K21.9 Gastro-esophageal reflux disease without esophagitis; Z79.899 Other long term (current) drug therapy; Z88.0 Allergy status to penicillin; W27.0XXA Contact with workbench tool, initial encounter
CPT/HCPCS: 12002; 99282; 99283; J3490